=== PATIENT | female | born 1975 | race Two or more races ===

== ENCOUNTER → 2018-06-30 | Outpatient (CLI) | payer OTHER, BC ==
[~2018-06-30] MED LIST: AZEL23SP NAS; HYDR1TAB12 PO; NITR100C56 PO; ONDA4TAB7 PO; TAMS-11 PO; TRAM50TA2 PO
== END | disposition home or self-care (01) ==
LOC: CFH 16:40
PROVIDERS: ATTEND Urology
DX: N20.0 Calculus of kidney (principal); Z96.0 Presence of urogenital implants
CPT/HCPCS: 74018

== ENCOUNTER → 2018-08-12 | Outpatient (CLI) | payer OTHER, BC | END | disposition home or self-care (01) | LOC: CFH 08:35 | PROVIDERS: ATTEND Nurse Practitioner Gerontology | DX: R30.0 Dysuria (principal) | CPT/HCPCS: 74018 ==

== ENCOUNTER → 2020-09-19 | Outpatient (CLI) | payer OTHER, BC ==
[~2020-09-19] MED LIST changes: -HYDR1TAB12 PO; +HYDR1TAB13 PO
== END | disposition home or self-care (01) ==
LOC: CFH 09:14
PROVIDERS: ATTEND Urology
DX: N20.0 Calculus of kidney (principal); R91.1 Solitary pulmonary nodule; Z87.442 Personal history of urinary calculi
CPT/HCPCS: 74176